=== PATIENT | male | born 1970 | race African-American/Black ===

== ENCOUNTER 2019-06-18 01:09 | Inpatient (IN) ==
[2019-06-18] MEDS ORDERED: SODIUM CHLORIDE 0.9% 1,000 ML IV ONE (02:59)
[2019-06-18] MEDS ORDERED: DOPamine 800 MG/250 ML PREMIX IV PRN (02:59)
[2019-06-18] MEDS ORDERED: ONDANSETRON 4 MG/2 ML VIAL IV PRN (02:59)
[2019-06-18] MEDS ORDERED: ENOXAPARIN 40 MG/0.4 ML SYRINGE SUBCUT SCH (03:00)
[2019-06-18] MEDS ORDERED: LORazepam 2 MG/1 ML VIAL ONE ×2 (03:06→03:17)
[2019-06-18] MEDS ORDERED: LORazepam 2 MG/1 ML VIAL IV PRN ×2 (03:08→07:20)
[2019-06-18] MEDS ORDERED: LORazepam 2 MG/1 ML VIAL IM ONE (03:19)
[2019-06-18] MEDS ORDERED: LORazepam 2 MG/1 ML VIAL IV ONE ×3 (03:20→11:52)
[2019-06-18] MEDS ORDERED: NOREPINEPHRINE 4 MG/4 ML VIAL IV ONE (03:37)
[2019-06-18] MEDS: NOREPINEPHRINE 8 MG in SODIUM CHLORIDE 0.9% 242 ML IV PRN ×3 (03:42→19:56)
[2019-06-18] MEDS: SODIUM BICARB INJ 100 MEQ in SODIUM CHLORIDE 0.9% 1,000 ML IV SCH ×4 (04:00→20:52)
[2019-06-18 04:24] LABS: ABG Base Excess -14.6 MMOL/L (-2.5-2.5); ABG Oxygen Saturation 97.8 % (95-100); ABG PCO2 57.7 MM HG (35-48); ABG PO2 153.3 MM HG (80-95); ABG TCO2 17.8 MMOL/L (23-27)
[2019-06-18 04:31] LABS: ABG PH 7.062 (7.35-7.45)
[2019-06-18] MEDS ORDERED: SODIUM BICARBONATE 50 MEQ/50 ML VIAL IV ONE ×3 (04:35→06:08)
[2019-06-18] MEDS: PIPERACILLIN/TAZOBACTAM 3,375 MG in SODIUM CHLORIDE 0.9% 100 ML IV SCH ×3 (04:44→20:50)
[2019-06-18] MEDS: MIDAZOLAM 100 MG in SODIUM CHLORIDE 0.9% 80 ML IV PRN ×2 (04:51→19:58)
[2019-06-18 05:08] LABS: Basophils # 0.1 10*3/uL (0.0-0.2); Basophils % 0.6 % (0.0-0.8); Eosinophils # 0.1 10*3/uL (0.0-0.87); Eosinophils % 0.3 % (0.00-10.9); Hematocrit 41.3 VOL% (42.0-52.0); Hemoglobin 13.1 GM/DL (14.0-18.0); Immature Granulocytes % 4.4 %; Immature Granulocytes Absolute 0.82 #; Lymphocytes # 2.3 10*3/uL (1.4-4.0); Lymphocytes % 12.3 % (21.2-54.2); Mean Corpuscular HGB Conc 31.7 GM/DL (32-36); Mean Corpuscular Volume 99.3 FL (87-102); Mean Platelet Volume 9.8 FL (9.6-12.0); Monocytes % 4.6 % (1.7-12.7); Neutrophils % 77.8 % (38.7-73.9); Platelet Count 153 T/CUMM (130-400); Red Blood Count 4.16 MC/CUMM (3.8-5.5); Red Cell Distribution Width 13.5 % (9.3-17.3); White Blood Count 18.8 T/CUMM (4-12)
[2019-06-18 05:18] LABS: Barbiturates Screen,Urine Negative (Negative); Benzodiazepines Screen,Urine Negative (Negative); Cannabinoid Screen,Urine Negative (Negative); Opiate Screen,Urine Negative (Negative); Phencyclidine Screen,Urine Negative (Negative)
[2019-06-18 05:24] LABS: Apearance,Urine CLOUDY (Clear); Bacteria,Urine Moderate /HPF (Few); Bilirubin,Urine Negative (Negative); Blood, Urine Large mg/dL (Negative); Glucose,Urine (UA) 150 mg/dL (Negative); Hyaline Casts,Urine 8 /LPF (0-3); Ketones,Urine Negative (Negative); Nitrite,Urine Negative (Negative); Protein,Urine 100 MG/DL; RBC,Urine 1087 /HPF (0-4); Sperm,Urine Few /HPF (Negative); Squamous Epithelial Cell,Urine Occasional /HPF (0-10); Urine Color Yellow (Yellow); Urine Specific Gravity 1.012 (1.001-1.035); Urine Urobilinogen < 2.0 EU/DL (0.2-1.0)
[2019-06-18 05:31] LABS: Band Neutrophils 2 % (0-10); Eosinophils 1 % (0-10); Lymphocytes 6 % (20-55); Segmented Neutrophils 87 % (50-85); Total Cells Counted 100
[2019-06-18 05:32] LABS: Hypochromasia Slight; Platelet Estimate Adequate
[2019-06-18 05:44] LABS: Albumin 2.3 G/DL (3.4-5.0); Bilirubin,Total 0.7 MG/DL (0.2-1.0); Calcium 7.1 MG/DL (8.5-10.1); Osmolality,Calculated 297.6 MOS/KG (273-304); Total Protein 5.9 G/DL (6.4-8.3)
[2019-06-18 05:56] LABS: CKMB % 1.8 %
[2019-06-18 06:01] LABS: ABG Base Excess -8.5 MMOL/L (-2.5-2.5); ABG HCO3 17.7 MMOL/L (20-26); ABG Oxygen Saturation 98.3 % (95-100); ABG PCO2 52.3 MM HG (35-48); ABG TCO2 18.2 MMOL/L (23-27)
[2019-06-18 06:02] LABS: Troponin I 1.93 NG/ML (0.00-0.045)
[2019-06-18] MEDS: VANCOMYCIN INJ 1,750 MG in SODIUM CHLORIDE 0.9% 500 ML IV SCH (06:19)
[2019-06-18 08:52] LABS: ABG Base Excess -4.9 MMOL/L (-2.5-2.5); ABG HCO3 20.8 MMOL/L (20-26); ABG Oxygen Saturation 97.1 % (95-100); ABG PCO2 41.2 MM HG (35-48); ABG PH 7.322 (7.35-7.45); ABG PO2 101.1 MM HG (80-95); ABG TCO2 22.1 MMOL/L (23-27)
[2019-06-18] MEDS: FAMOTIDINE 20 MG/2 ML VIAL IV SCH ×2 (09:58→20:51)
[2019-06-18] MEDS: PHENobarbital 65 MG/1 ML VIAL IV SCH (14:26)
[2019-06-19] MEDS: PHENobarbital 65 MG/1 ML VIAL IV SCH ×2 (00:35→14:00)
[2019-06-19] MEDS: VANCOMYCIN INJ 1,750 MG in SODIUM CHLORIDE 0.9% 500 ML IV SCH (00:35)
[2019-06-19] MEDS: SODIUM BICARB INJ 100 MEQ in SODIUM CHLORIDE 0.9% 1,000 ML IV SCH ×2 (02:57→04:24)
[2019-06-19 04:03] LABS: ABG Base Excess 2.1 MMOL/L (-2.5-2.5); ABG HCO3 26.3 MMOL/L (20-26); ABG Oxygen Saturation 99.8 % (95-100); ABG PCO2 32.6 MM HG (35-48); ABG PH 7.491 (7.35-7.45); ABG TCO2 21.9 MMOL/L (23-27)
[2019-06-19 04:05] LABS: Basophils % 0.1 % (0.0-0.8); Hematocrit 34.4 VOL% (42.0-52.0); Hemoglobin 11.5 GM/DL (14.0-18.0); Immature Granulocytes % 0.6 %; Immature Granulocytes Absolute 0.08 #; Lymphocytes # 1.4 10*3/uL (1.4-4.0); Lymphocytes % 10.2 % (21.2-54.2); Mean Corpuscular HGB Conc 33.4 GM/DL (32-36); Mean Corpuscular Volume 94.2 FL (87-102); Mean Platelet Volume 10.8 FL (9.6-12.0); Monocytes % 5.2 % (1.7-12.7); Neutrophils % 83.9 % (38.7-73.9); Platelet Count 107 T/CUMM (130-400); Red Blood Count 3.65 MC/CUMM (3.8-5.5); Red Cell Distribution Width 13.6 % (9.3-17.3); White Blood Count 13.6 T/CUMM (4-12)
[2019-06-19 04:18] LABS: Albumin 2.4 G/DL (3.4-5.0); Bilirubin,Total 0.6 MG/DL (0.2-1.0); Calcium 6.8 MG/DL (8.5-10.1)
[2019-06-19] MEDS: PIPERACILLIN/TAZOBACTAM 3,375 MG in SODIUM CHLORIDE 0.9% 100 ML IV SCH ×3 (04:22→21:03)
[2019-06-19] MEDS: MIDAZOLAM 100 MG in SODIUM CHLORIDE 0.9% 80 ML IV PRN (04:22)
[2019-06-19] MEDS ORDERED: DEXTROSE 10% 250 ML BAG IV PRN (08:29)
[2019-06-19] MEDS ORDERED: GLUCAGON 1 MG VIAL IM PRN (08:29)
[2019-06-19] MEDS: SODIUM CHLORIDE 0.45% 1,000 ML IV SCH ×4 (08:56→22:30)
[2019-06-19] MEDS: FAMOTIDINE 20 MG/2 ML VIAL IV SCH (09:35)
[2019-06-19] MEDS: DEXAMETHASONE 4 MG/1 ML VIAL IV SCH ×3 (11:29→23:20)
[2019-06-19] MEDS: niCARdipine INJ 25 MG in SODIUM CHLORIDE 0.9% 240 ML IV PRN ×2 (11:29→22:15)
[2019-06-20] MEDS: PHENobarbital 65 MG/1 ML VIAL IV SCH ×2 (01:54→14:30)
[2019-06-20] MEDS: PIPERACILLIN/TAZOBACTAM 3,375 MG in SODIUM CHLORIDE 0.9% 100 ML IV SCH ×3 (03:56→20:00)
[2019-06-20] MEDS: SODIUM CHLORIDE 0.45% 1,000 ML IV SCH ×4 (04:08→20:14)
[2019-06-20 04:33] LABS: ABG Base Excess 0.7 MMOL/L (-2.5-2.5); ABG Oxygen Saturation 97.7 % (95-100); ABG PCO2 37.8 MM HG (35-48); ABG PH 7.426 (7.35-7.45); ABG TCO2 21.7 MMOL/L (23-27)
[2019-06-20] MEDS: DEXAMETHASONE 4 MG/1 ML VIAL IV SCH ×3 (04:50→19:59)
[2019-06-20 05:32] LABS: Basophils % 0.1 % (0.0-0.8); Hematocrit 39.3 VOL% (42.0-52.0); Hemoglobin 12.8 GM/DL (14.0-18.0); Immature Granulocytes Absolute 0.15 #; Lymphocytes # 0.6 10*3/uL (1.4-4.0); Mean Corpuscular HGB Conc 32.6 GM/DL (32-36); Mean Corpuscular Volume 96.8 FL (87-102); Mean Platelet Volume 11.7 FL (9.6-12.0); Monocytes % 3.3 % (1.7-12.7); Neutrophils % 91.6 % (38.7-73.9); Platelet Count 112 T/CUMM (130-400); Red Blood Count 4.06 MC/CUMM (3.8-5.5); Red Cell Distribution Width 13.5 % (9.3-17.3); White Blood Count 14.3 T/CUMM (4-12)
[2019-06-20 05:57] LABS: Albumin 2.7 G/DL (3.4-5.0); Bilirubin,Total 0.9 MG/DL (0.2-1.0); Calcium 7.6 MG/DL (8.5-10.1); Osmolality,Calculated 305.1 MOS/KG (273-304); Total Protein 6.5 G/DL (6.4-8.3)
[2019-06-20 06:01] LABS: Hypochromasia 2+; Lymphocytes 6 % (20-55); Platelet Estimate Decreased; Segmented Neutrophils 92 % (50-85); Total Cells Counted 100
[2019-06-20] MEDS: niCARdipine INJ 25 MG in SODIUM CHLORIDE 0.9% 240 ML IV PRN ×2 (07:50→23:40)
[2019-06-20] MEDS: FAMOTIDINE 20 MG/2 ML VIAL IV SCH (09:38)
[2019-06-21] MEDS: DEXAMETHASONE 4 MG/1 ML VIAL IV SCH ×4 (00:24→17:26)
[2019-06-21] MEDS: PHENobarbital 65 MG/1 ML VIAL IV SCH ×2 (00:30→12:39)
[2019-06-21 03:55] LABS: ABG HCO3 22.4 MMOL/L (20-26); ABG Oxygen Saturation 97.3 % (95-100); ABG PCO2 33.5 MM HG (35-48); ABG PH 7.443 (7.35-7.45); ABG PO2 94.6 MM HG (80-95); ABG TCO2 23.4 MMOL/L (23-27)
[2019-06-21 04:21] LABS: Basophils % 0.2 % (0.0-0.8); Hematocrit 40.3 VOL% (42.0-52.0); Immature Granulocytes Absolute 0.16 #; Lymphocytes # 0.6 10*3/uL (1.4-4.0); Lymphocytes % 3.9 % (21.2-54.2); Mean Corpuscular HGB Conc 32.3 GM/DL (32-36); Mean Corpuscular Volume 96.2 FL (87-102); Mean Platelet Volume 11.2 FL (9.6-12.0); Monocytes % 4.4 % (1.7-12.7); NRBC # 0.02 10*3/uL; Neutrophils % 90.5 % (38.7-73.9); Platelet Count 130 T/CUMM (130-400); Red Blood Count 4.19 MC/CUMM (3.8-5.5); Red Cell Distribution Width 13.2 % (9.3-17.3); White Blood Count 15.3 T/CUMM (4-12)
[2019-06-21 04:28] LABS: Albumin 2.4 G/DL (3.4-5.0); Bilirubin,Total 0.5 MG/DL (0.2-1.0); Osmolality,Calculated 303.3 MOS/KG (273-304); Total Protein 6.1 G/DL (6.4-8.3)
[2019-06-21] MEDS: PIPERACILLIN/TAZOBACTAM 3,375 MG in SODIUM CHLORIDE 0.9% 100 ML IV SCH (04:35)
[2019-06-21 04:51] LABS: Hypochromasia 1+; Lymphocytes 3 % (20-55); Ovalocytes Slight; Platelet Estimate Adequate; Segmented Neutrophils 94 % (50-85); Total Cells Counted 100
[2019-06-21] MEDS: niCARdipine INJ 25 MG in SODIUM CHLORIDE 0.9% 240 ML IV PRN ×5 (06:08→23:50)
[2019-06-21] MEDS: FAMOTIDINE 20 MG/2 ML VIAL IV SCH (09:04)
[2019-06-21] MEDS: amLODIPine 10 MG TABLET PER TUBE SCH (09:11)
[2019-06-21] MEDS: cloNIDine 0.3 MG/24 HR PATCH TRANSDERM SCH (09:11)
[2019-06-21] MEDS: cefTRIAXone 1,000 MG in SYRINGE 1 EACH IV SCH (09:11)
[2019-06-21] MEDS: SODIUM CHLORIDE 0.45% 1,000 ML IV SCH ×2 (12:42→16:21)
[2019-06-21] MEDS ORDERED: niCARdipine INJ 50 MG in SODIUM CHLORIDE 0.9% 480 ML IV PRN (16:49)
[2019-06-22] MEDS: PHENobarbital 65 MG/1 ML VIAL IV SCH ×2 (00:28→12:10)
[2019-06-22] MEDS: DEXAMETHASONE 4 MG/1 ML VIAL IV SCH ×5 (00:28→23:23)
[2019-06-22 04:01] LABS: ABG Base Excess -0.5 MMOL/L (-2.5-2.5); ABG Oxygen Saturation 98.6 % (95-100); ABG PCO2 32.8 MM HG (35-48); ABG PH 7.449 (7.35-7.45)
[2019-06-22 04:05] LABS: Basophils % 0.2 % (0.0-0.8); Immature Granulocytes % 0.8 %; Immature Granulocytes Absolute 0.11 #; Lymphocytes # 0.4 10*3/uL (1.4-4.0); Lymphocytes % 3.4 % (21.2-54.2); Mean Corpuscular HGB Conc 32.4 GM/DL (32-36); Mean Corpuscular Volume 95.9 FL (87-102); Monocytes % 4.4 % (1.7-12.7); NRBC # 0.02 10*3/uL; Neutrophils % 91.2 % (38.7-73.9); Platelet Count 122 T/CUMM (130-400); Red Blood Count 3.86 MC/CUMM (3.8-5.5); Red Cell Distribution Width 13.2 % (9.3-17.3)
[2019-06-22 04:24] LABS: Hypochromasia 1+; Lymphocytes 3 % (20-55); Platelet Estimate Normal; Segmented Neutrophils 91 % (50-85); Total Cells Counted 100
[2019-06-22 04:29] LABS: Calcium 7.5 MG/DL (8.5-10.1); Osmolality,Calculated 301.6 MOS/KG (273-304)
[2019-06-22] MEDS: niCARdipine INJ 25 MG in SODIUM CHLORIDE 0.9% 240 ML IV PRN ×2 (05:10→15:38)
[2019-06-22] MEDS: SODIUM CHLORIDE 0.45% 1,000 ML IV SCH ×2 (06:08→09:37)
[2019-06-22] MEDS: FAMOTIDINE 20 MG/2 ML VIAL IV SCH (08:08)
[2019-06-22] MEDS: cefTRIAXone 1,000 MG in SYRINGE 1 EACH IV SCH (08:08)
[2019-06-22] MEDS: amLODIPine 10 MG TABLET PER TUBE SCH (08:08)
[2019-06-22] MEDS: AZITHROMYCIN 250 MG TABLET PO SCH (08:19)
[2019-06-23] MEDS: SODIUM CHLORIDE 0.45% 1,000 ML IV SCH ×3 (01:19→21:50)
[2019-06-23] MEDS: PHENobarbital 65 MG/1 ML VIAL IV SCH ×2 (02:07→13:14)
[2019-06-23 04:49] LABS: ABG Base Excess -3.1 MMOL/L (-2.5-2.5); ABG HCO3 20.4 MMOL/L (20-26); ABG Oxygen Saturation 98.8 % (95-100); ABG PH 7.423 (7.35-7.45); ABG PO2 151.1 MM HG (80-95); ABG TCO2 21.4 MMOL/L (23-27)
[2019-06-23 05:10] LABS: Basophils % 0.2 % (0.0-0.8); Hematocrit 38.1 VOL% (42.0-52.0); Hemoglobin 12.5 GM/DL (14.0-18.0); Immature Granulocytes % 1.4 %; Immature Granulocytes Absolute 0.18 #; Lymphocytes # 0.5 10*3/uL (1.4-4.0); Lymphocytes % 3.7 % (21.2-54.2); Mean Corpuscular HGB Conc 32.8 GM/DL (32-36); Mean Corpuscular Volume 94.3 FL (87-102); Monocytes % 5.8 % (1.7-12.7); Neutrophils % 88.9 % (38.7-73.9); Platelet Count 112 T/CUMM (130-400); Red Blood Count 4.04 MC/CUMM (3.8-5.5); White Blood Count 12.6 T/CUMM (4-12)
[2019-06-23 05:39] LABS: Calcium 7.7 MG/DL (8.5-10.1); Osmolality,Calculated 302.8 MOS/KG (273-304)
[2019-06-23 05:48] LABS: Lymphocytes 4 % (20-55); Myelocytes 1 %; Platelet Estimate Adequate; Segmented Neutrophils 92 % (50-85); Total Cells Counted 100
[2019-06-23] MEDS: DEXAMETHASONE 4 MG/1 ML VIAL IV SCH ×4 (05:50→23:45)
[2019-06-23] MEDS: FAMOTIDINE 20 MG/2 ML VIAL IV SCH (09:33)
[2019-06-23] MEDS: cefTRIAXone 1,000 MG in SYRINGE 1 EACH IV SCH (09:33)
[2019-06-23] MEDS: AZITHROMYCIN 250 MG TABLET PO SCH (09:33)
[2019-06-23] MEDS: amLODIPine 10 MG TABLET PER TUBE SCH (09:33)
[2019-06-24] MEDS: PHENobarbital 65 MG/1 ML VIAL IV SCH ×2 (00:13→13:57)
[2019-06-24 04:16] LABS: ABG Base Excess -2.8 MMOL/L (-2.5-2.5); ABG HCO3 22.1 MMOL/L (20-26); ABG PCO2 32.6 MM HG (35-48); ABG PH 7.415 (7.35-7.45); ABG TCO2 18.3 MMOL/L (23-27)
[2019-06-24 04:19] LABS: Basophils # 0.1 10*3/uL (0.0-0.2); Basophils % 0.3 % (0.0-0.8); Hematocrit 38.2 VOL% (42.0-52.0); Hemoglobin 12.7 GM/DL (14.0-18.0); Immature Granulocytes % 2.1 %; Immature Granulocytes Absolute 0.33 #; Lymphocytes # 0.6 10*3/uL (1.4-4.0); Lymphocytes % 3.5 % (21.2-54.2); Mean Corpuscular HGB Conc 33.2 GM/DL (32-36); Mean Corpuscular Volume 94.1 FL (87-102); Mean Platelet Volume 10.6 FL (9.6-12.0); Monocytes % 6.6 % (1.7-12.7); Neutrophils % 87.5 % (38.7-73.9); Platelet Count 108 T/CUMM (130-400); Red Blood Count 4.06 MC/CUMM (3.8-5.5); White Blood Count 15.5 T/CUMM (4-12)
[2019-06-24 04:34] LABS: Calcium 7.6 MG/DL (8.5-10.1); Osmolality,Calculated 306.8 MOS/KG (273-304)
[2019-06-24 05:02] LABS: Eosinophils 1 % (0-10); Hypochromasia 1+; Lymphocytes 3 % (20-55); Segmented Neutrophils 92 % (50-85); Total Cells Counted 100
[2019-06-24 05:03] LABS: Microcytosis Slight; Platelet Estimate Decreased
[2019-06-24] MEDS: DEXAMETHASONE 4 MG/1 ML VIAL IV SCH ×4 (05:40→22:48)
[2019-06-24] MEDS: FAMOTIDINE 20 MG/2 ML VIAL IV SCH (08:40)
[2019-06-24] MEDS: cefTRIAXone 1,000 MG in SYRINGE 1 EACH IV SCH (08:40)
[2019-06-24] MEDS: hydrALAZINE 25 MG TABLET PO SCH ×3 (08:40→18:17)
[2019-06-24] MEDS: carvediloL 6.25 MG TABLET PO SCH ×2 (08:40→21:19)
[2019-06-24] MEDS: AZITHROMYCIN 250 MG TABLET PO SCH (08:40)
[2019-06-24] MEDS: amLODIPine 10 MG TABLET PER TUBE SCH (08:46)
[2019-06-24] MEDS: SODIUM CHLORIDE 0.45% 1,000 ML IV SCH (19:04)
[2019-06-25] MEDS: hydrALAZINE 25 MG TABLET PO SCH ×4 (00:20→17:09)
[2019-06-25] MEDS: PHENobarbital 65 MG/1 ML VIAL IV SCH (01:20)
[2019-06-25 04:09] LABS: ABG Base Excess -2.5 MMOL/L (-2.5-2.5); ABG HCO3 22.4 MMOL/L (20-26); ABG Oxygen Saturation 99.1 % (95-100); ABG PCO2 34.2 MM HG (35-48); ABG PH 7.406 (7.35-7.45); ABG TCO2 18.8 MMOL/L (23-27)
[2019-06-25 04:12] LABS: Basophils # 0.1 10*3/uL (0.0-0.2); Basophils % 0.4 % (0.0-0.8); Hematocrit 38.4 VOL% (42.0-52.0); Hemoglobin 12.5 GM/DL (14.0-18.0); Immature Granulocytes % 4.5 %; Immature Granulocytes Absolute 0.74 #; Lymphocytes # 0.6 10*3/uL (1.4-4.0); Lymphocytes % 3.5 % (21.2-54.2); Mean Corpuscular HGB Conc 32.6 GM/DL (32-36); Mean Corpuscular Volume 95.3 FL (87-102); Mean Platelet Volume 10.7 FL (9.6-12.0); Monocytes % 9.9 % (1.7-12.7); NRBC # 0.02 10*3/uL; Neutrophils % 81.7 % (38.7-73.9); Platelet Count 118 T/CUMM (130-400); Red Blood Count 4.03 MC/CUMM (3.8-5.5); Red Cell Distribution Width 13.2 % (9.3-17.3); White Blood Count 16.4 T/CUMM (4-12)
[2019-06-25 04:36] LABS: Calcium 7.8 MG/DL (8.5-10.1); Osmolality,Calculated 305.7 MOS/KG (273-304)
[2019-06-25 04:38] LABS: Hypochromasia 1+; Lymphocytes 3 % (20-55); Platelet Estimate Decreased; Segmented Neutrophils 86 % (50-85); Total Cells Counted 100
[2019-06-25 04:39] LABS: Microcytosis Slight
[2019-06-25] MEDS: DEXAMETHASONE 4 MG/1 ML VIAL IV SCH ×3 (05:25→17:09)
[2019-06-25] MEDS: AZITHROMYCIN 250 MG TABLET PO SCH (08:17)
[2019-06-25] MEDS: amLODIPine 10 MG TABLET PER TUBE SCH (08:17)
[2019-06-25] MEDS: carvediloL 6.25 MG TABLET PO SCH ×2 (08:17→20:11)
[2019-06-25] MEDS: FAMOTIDINE 20 MG/2 ML VIAL IV SCH (08:19)
[2019-06-25] MEDS: cefTRIAXone 1,000 MG in SYRINGE 1 EACH IV SCH (08:19)
[2019-06-25] MEDS: SODIUM CHLORIDE 0.45% 1,000 ML IV SCH ×2 (08:45→12:51)
[2019-06-25] MEDS: PHENobarbital 130 MG/1 ML VIAL IV SCH (12:43)
[2019-06-25] MEDS: SULFAMETHOX/TRIMETHOPRIM 800-160 MG TABLET PER TUBE SCH ×2 (15:51→20:11)
[2019-06-26] MEDS: hydrALAZINE 25 MG TABLET PO SCH ×5 (00:13→23:58)
[2019-06-26] MEDS: DEXAMETHASONE 4 MG/1 ML VIAL IV SCH ×5 (00:13→23:58)
[2019-06-26] MEDS: PHENobarbital 130 MG/1 ML VIAL IV SCH ×2 (00:14→12:11)
[2019-06-26 04:12] LABS: ABG Base Excess -3.9 MMOL/L (-2.5-2.5); ABG HCO3 19.9 MMOL/L (20-26); ABG Oxygen Saturation 98.5 % (95-100); ABG PCO2 32.6 MM HG (35-48); ABG PH 7.404 (7.35-7.45); ABG PO2 129.9 MM HG (80-95); ABG TCO2 20.9 MMOL/L (23-27)
[2019-06-26 04:22] LABS: Basophils # 0.1 10*3/uL (0.0-0.2); Basophils % 0.3 % (0.0-0.8); Hemoglobin 12.9 GM/DL (14.0-18.0); Immature Granulocytes % 4.7 %; Immature Granulocytes Absolute 0.82 #; Lymphocytes # 0.5 10*3/uL (1.4-4.0); Mean Corpuscular HGB Conc 33.1 GM/DL (32-36); Mean Corpuscular Volume 94.7 FL (87-102); Mean Platelet Volume 10.7 FL (9.6-12.0); Monocytes % 7.9 % (1.7-12.7); Neutrophils % 84.1 % (38.7-73.9); Platelet Count 116 T/CUMM (130-400); Red Blood Count 4.12 MC/CUMM (3.8-5.5); Red Cell Distribution Width 13.3 % (9.3-17.3); White Blood Count 17.3 T/CUMM (4-12)
[2019-06-26 04:48] LABS: Calcium 8.5 MG/DL (8.5-10.1); Osmolality,Calculated 303.8 MOS/KG (273-304)
[2019-06-26 05:12] LABS: Band Neutrophils 2 % (0-10); Lymphocytes 6 % (20-55); Platelet Estimate Decreased; Segmented Neutrophils 84 % (50-85); Total Cells Counted 100
[2019-06-26] MEDS: SODIUM CHLORIDE 0.45% 1,000 ML IV SCH ×2 (05:46→12:10)
[2019-06-26] MEDS: hydrALAZINE 20 MG/1 ML VIAL IV PRN ×2 (06:24→22:34)
[2019-06-26] MEDS: carvediloL 6.25 MG TABLET PO SCH ×2 (08:42→20:01)
[2019-06-26] MEDS: amLODIPine 10 MG TABLET PER TUBE SCH (08:42)
[2019-06-26] MEDS: FAMOTIDINE 20 MG/2 ML VIAL IV SCH (08:42)
[2019-06-26] MEDS: SULFAMETHOX/TRIMETHOPRIM 800-160 MG TABLET PER TUBE SCH ×2 (08:42→20:01)
[2019-06-27] MEDS ORDERED: ALBUTEROL 2.5 MG/3 ML NEB RESP TX SCH (03:00)
[2019-06-27] MEDS: ALBUTEROL 2.5 MG/3 ML NEB RESP TX SCH ×5 (03:00→19:46)
[2019-06-27] MEDS: SODIUM CHLORIDE 0.45% 1,000 ML IV SCH ×2 (03:10→05:33)
[2019-06-27 04:23] LABS: ABG Base Excess -3.3 MMOL/L (-2.5-2.5); ABG HCO3 21.7 MMOL/L (20-26); ABG Oxygen Saturation 97.7 % (95-100); ABG PCO2 32.2 MM HG (35-48); ABG PH 7.409 (7.35-7.45); ABG TCO2 17.6 MMOL/L (23-27)
[2019-06-27 04:28] LABS: Basophils # 0.1 10*3/uL (0.0-0.2); Basophils % 0.5 % (0.0-0.8); Hematocrit 40.9 VOL% (42.0-52.0); Hemoglobin 13.5 GM/DL (14.0-18.0); Immature Granulocytes % 4.7 %; Immature Granulocytes Absolute 0.95 #; Lymphocytes # 0.5 10*3/uL (1.4-4.0); Lymphocytes % 2.5 % (21.2-54.2); Mean Corpuscular Volume 95.1 FL (87-102); Mean Platelet Volume 10.8 FL (9.6-12.0); Monocytes % 6.9 % (1.7-12.7); Neutrophils % 85.4 % (38.7-73.9); Platelet Count 138 T/CUMM (130-400); Red Cell Distribution Width 13.7 % (9.3-17.3)
[2019-06-27 04:45] LABS: Calcium 8.6 MG/DL (8.5-10.1)
[2019-06-27 04:52] LABS: Band Neutrophils 1 % (0-10); Lymphocytes 1 % (20-55); Metamyelocytes 1 %; Segmented Neutrophils 91 % (50-85); Total Cells Counted 100
[2019-06-27 04:54] LABS: Platelet Estimate Normal; Polychromasia Slight
[2019-06-27] MEDS: DEXAMETHASONE 4 MG/1 ML VIAL IV SCH ×4 (05:33→23:02)
[2019-06-27] MEDS: hydrALAZINE 25 MG TABLET PO SCH ×4 (05:33→23:02)
[2019-06-27] MEDS: carvediloL 6.25 MG TABLET PO SCH ×2 (09:45→21:08)
[2019-06-27] MEDS: amLODIPine 10 MG TABLET PER TUBE SCH (09:45)
[2019-06-27] MEDS: SULFAMETHOX/TRIMETHOPRIM 800-160 MG TABLET PER TUBE SCH ×2 (09:45→21:09)
[2019-06-27] MEDS: FAMOTIDINE 20 MG/2 ML VIAL IV SCH (09:45)
[2019-06-27] MEDS: PHENobarbital 130 MG/1 ML VIAL IV SCH ×2 (13:13)
[2019-06-27] MEDS ORDERED: SODIUM POLYSTYRENE SULFATE 15 GM/60 ML BOTTLE PO ONE (16:42)
[2019-06-28] MEDS: ALBUTEROL 2.5 MG/3 ML NEB RESP TX SCH ×7 (00:14→23:35)
[2019-06-28] MEDS: PHENobarbital 130 MG/1 ML VIAL IV SCH ×2 (01:18→12:40)
[2019-06-28] MEDS: hydrALAZINE 20 MG/1 ML VIAL IV PRN (01:29)
[2019-06-28 04:57] LABS: ABG HCO3 22.7 MMOL/L (20-26); ABG Oxygen Saturation 98.1 % (95-100); ABG PCO2 34.9 MM HG (35-48); ABG PH 7.406 (7.35-7.45); ABG TCO2 18.6 MMOL/L (23-27)
[2019-06-28 05:11] LABS: Basophils # 0.1 10*3/uL (0.0-0.2); Basophils % 0.3 % (0.0-0.8); Hematocrit 42.9 VOL% (42.0-52.0); Immature Granulocytes % 3.6 %; Immature Granulocytes Absolute 0.97 #; Lymphocytes # 0.6 10*3/uL (1.4-4.0); Lymphocytes % 2.4 % (21.2-54.2); Mean Corpuscular HGB Conc 32.6 GM/DL (32-36); Mean Corpuscular Volume 94.3 FL (87-102); Mean Platelet Volume 11.2 FL (9.6-12.0); Monocytes % 4.9 % (1.7-12.7); Neutrophils % 88.8 % (38.7-73.9); Platelet Count 162 T/CUMM (130-400); Red Blood Count 4.55 MC/CUMM (3.8-5.5); Red Cell Distribution Width 13.9 % (9.3-17.3); White Blood Count 26.8 T/CUMM (4-12)
[2019-06-28] MEDS: DEXAMETHASONE 4 MG/1 ML VIAL IV SCH ×3 (05:14→16:14)
[2019-06-28] MEDS: hydrALAZINE 25 MG TABLET PO SCH ×3 (05:15→17:34)
[2019-06-28] MEDS: SODIUM CHLORIDE 0.45% 1,000 ML IV SCH (05:15)
[2019-06-28 05:38] LABS: Albumin 2.2 G/DL (3.4-5.0); Bilirubin,Total 0.4 MG/DL (0.2-1.0); Calcium 8.6 MG/DL (8.5-10.1); Total Protein 6.7 G/DL (6.4-8.3)
[2019-06-28 06:27] LABS: Hypochromasia Slight; Lymphocytes 2 % (20-55); Platelet Estimate Normal; Segmented Neutrophils 90 % (50-85); Total Cells Counted 100
[2019-06-28] MEDS: SULFAMETHOX/TRIMETHOPRIM 800-160 MG TABLET PER TUBE SCH ×2 (10:59→20:23)
[2019-06-28] MEDS: amLODIPine 10 MG TABLET PER TUBE SCH (10:59)
[2019-06-28] MEDS: FAMOTIDINE 20 MG/2 ML VIAL IV SCH (10:59)
[2019-06-28] MEDS: cloNIDine 0.3 MG/24 HR PATCH TRANSDERM SCH (10:59)
[2019-06-28] MEDS: carvediloL 6.25 MG TABLET PO SCH ×2 (10:59→20:23)
[2019-06-28] MEDS ORDERED: LORazepam 2 MG/1 ML VIAL IV ONE (14:33)
[2019-06-28 15:24] VITALS: BP 164/82
[2019-06-29] MEDS: DEXAMETHASONE 4 MG/1 ML VIAL IV SCH ×4 (00:20→16:18)
[2019-06-29] MEDS: PHENobarbital 130 MG/1 ML VIAL IV SCH ×2 (00:20→12:31)
[2019-06-29] MEDS: hydrALAZINE 25 MG TABLET PO SCH ×4 (00:21→18:21)
[2019-06-29] MEDS: ALBUTEROL 2.5 MG/3 ML NEB RESP TX SCH ×5 (02:44→20:46)
[2019-06-29 04:04] LABS: Basophils # 0.1 10*3/uL (0.0-0.2); Basophils % 0.4 % (0.0-0.8); Hematocrit 37.5 VOL% (42.0-52.0); Hemoglobin 12.5 GM/DL (14.0-18.0); Immature Granulocytes % 2.6 %; Immature Granulocytes Absolute 0.56 #; Lymphocytes # 0.4 10*3/uL (1.4-4.0); Lymphocytes % 1.9 % (21.2-54.2); Mean Corpuscular HGB Conc 33.3 GM/DL (32-36); Mean Corpuscular Volume 94.5 FL (87-102); Mean Platelet Volume 10.7 FL (9.6-12.0); Monocytes % 5.6 % (1.7-12.7); Neutrophils % 89.5 % (38.7-73.9); Platelet Count 149 T/CUMM (130-400); Red Blood Count 3.97 MC/CUMM (3.8-5.5); White Blood Count 21.2 T/CUMM (4-12)
[2019-06-29 04:05] LABS: ABG Base Excess -1.1 MMOL/L (-2.5-2.5); ABG HCO3 23.5 MMOL/L (20-26); ABG Oxygen Saturation 98.7 % (95-100); ABG PCO2 31.1 MM HG (35-48); ABG PH 7.455 (7.35-7.45)
[2019-06-29 04:14] LABS: Calcium 8.5 MG/DL (8.5-10.1)
[2019-06-29 04:58] LABS: Anisocytosis 1+; Eosinophils 1 % (0-10); Lymphocytes 3 % (20-55); Segmented Neutrophils 91 % (50-85); Total Cells Counted 100
[2019-06-29 04:59] LABS: Platelet Estimate Adequate
[2019-06-29] MEDS ORDERED: LEVOFLOXACIN INJ 750 MG in PREMIX 1 EACH IV SCH (09:00)
[2019-06-29] MEDS ORDERED: SODIUM POLYSTYRENE SULFATE 15 GM/60 ML BOTTLE PO ONE (09:00)
[2019-06-29] MEDS: carvediloL 6.25 MG TABLET PO SCH ×2 (09:49→21:27)
[2019-06-29] MEDS: amLODIPine 10 MG TABLET PER TUBE SCH (09:49)
[2019-06-29] MEDS: FAMOTIDINE 20 MG/2 ML VIAL IV SCH (09:49)
[2019-06-30] MEDS: ALBUTEROL 2.5 MG/3 ML NEB RESP TX SCH ×4 (00:10→11:33)
[2019-06-30] MEDS: DEXAMETHASONE 4 MG/1 ML VIAL IV SCH ×3 (00:38→12:00)
[2019-06-30] MEDS: hydrALAZINE 25 MG TABLET PO SCH ×2 (00:42→06:04)
[2019-06-30] MEDS: PHENobarbital 130 MG/1 ML VIAL IV SCH ×2 (00:48→12:00)
[2019-06-30 04:30] LABS: ABG Base Excess -0.9 MMOL/L (-2.5-2.5); ABG HCO3 23.7 MMOL/L (20-26); ABG Oxygen Saturation 98.4 % (95-100); ABG PCO2 31.9 MM HG (35-48); ABG PH 7.451 (7.35-7.45); ABG TCO2 19.5 MMOL/L (23-27)
[2019-06-30 05:07] LABS: Basophils % 0.2 % (0.0-0.8); Eosinophils % 0.1 % (0.00-10.9); Hematocrit 36.3 VOL% (42.0-52.0); Hemoglobin 11.7 GM/DL (14.0-18.0); Immature Granulocytes % 2.1 %; Lymphocytes # 0.5 10*3/uL (1.4-4.0); Lymphocytes % 2.7 % (21.2-54.2); Mean Corpuscular HGB Conc 32.2 GM/DL (32-36); Mean Corpuscular Volume 95.8 FL (87-102); Mean Platelet Volume 10.7 FL (9.6-12.0); Monocytes % 6.3 % (1.7-12.7); Neutrophils % 88.6 % (38.7-73.9); Platelet Count 159 T/CUMM (130-400); Red Blood Count 3.79 MC/CUMM (3.8-5.5); Red Cell Distribution Width 14.3 % (9.3-17.3); White Blood Count 18.9 T/CUMM (4-12)
[2019-06-30 05:27] LABS: Albumin 2.1 G/DL (3.4-5.0); Bilirubin,Total 0.6 MG/DL (0.2-1.0); Calcium 8.5 MG/DL (8.5-10.1); Total Protein 6.2 G/DL (6.4-8.3)
[2019-06-30 05:35] LABS: Hypochromasia 1+; Lymphocytes 2 % (20-55); Platelet Estimate Adequate; Segmented Neutrophils 97 % (50-85); Total Cells Counted 100
[2019-06-30] MEDS: FAMOTIDINE 20 MG/2 ML VIAL IV SCH (08:20)
[2019-06-30] MEDS: amLODIPine 10 MG TABLET PER TUBE SCH (08:20)
[2019-06-30] MEDS: carvediloL 6.25 MG TABLET PO SCH (08:20)
[2019-06-30] MEDS ORDERED: DEXAMETHASONE 4 MG/1 ML VIAL IV SCH (14:00)
[2019-07-01] MEDS ORDERED: LEVOFLOXACIN INJ 750 MG in PREMIX 1 EACH IV SCH (09:00)
== END 2019-06-30 15:12 | disposition expired | DRG 207 ==
LOC: SUATTDRO 02:36 → N.CC 02:36
PROVIDERS: ADMIT Internal Medicine; ATTEND Internal Medicine